=== PATIENT | female | born 1985 | race American Indian/Alaskan Native ===

== ENCOUNTER → 2018-12-15 | Emergency (ER) | payer OTHER ==
[~2018-12-15] MED LIST: TYLENOL PO ONE
[2018-12-15 11:13] VITALS: BP 124/73
--- NOTE | 2018-12-15 11:15 | Emergency Department Report ---
Chief Complaint: Vaginal Bleeding Stated Complaint: ABD PAIN Time Seen by Provider: 12/15/18 11:09 - HPI History of Present Illness: This is a 33 y.o. female that presents to ED with abdominal pain and vaginal bleeding x 1 week. Took a home test on Tuesday which was positive. Admits to nausea and vomiting twice, mild lower back pain. LMP 11/10/2018, A1. - ROS Review of Systems: Abdominal pain, vaginal bleeding, and low back pain - Exam Vital Signs: Vital Signs 12/15/18 11:10 Temperature 98.5 F Pulse Rate 66 Respiratory 20 Rate Blood Pressure 124/73 O2 Sat by Pulse 100 Oximetry MSE screening note: Focused history and physical exam performed. Due to findings the following was ordered: labs and US Fast track for further evaluation ED Disposition for MSE Condition: Stable
[2018-12-15 11:49] LABS: Basophils % (Auto) 0.2 % (0.0-1.8); Eosinophils # (Auto) 0.1 K/mm3 (0.0-0.4); Eosinophils % (Auto) 1.6 % (0.0-4.3); Hematocrit 39.3 % (30.3-42.9); Hemoglobin 13.1 gm/dl (10.1-14.3); Lymphocytes # (Auto) 2.6 K/mm3 (1.2-5.4); Lymphocytes % (Auto) 32.1 % (13.4-35.0); Mean Corpuscular HGB Conc 33 % (30-34); Mean Corpuscular Volume 82 fl (79-97); Monocytes # (Auto) 0.5 K/mm3 (0.0-0.8); Monocytes % (Auto) 6.3 % (0.0-7.3); Platelet Count 229 K/mm3 (140-440); Red Blood Count 4.82 M/mm3 (3.65-5.03); Red Cell Distribution Width 14.5 % (13.2-15.2)
--- NOTE | 2018-12-15 13:58 | Ultrasound Report ---
ULTRASOUND OB LESS THAN 14 WEEKS FETUS ULTRASOUND OB TRANSVAGINAL History: Vaginal bleeding. Findings: Transabdominal and transvaginal ultrasound imaging was performed. The uterus measures 9.8 x 6.1 x 7.4 cm. No uterine mass is appreciated. Normal cervix. A small intrauterine gestational sac is suspected near the uterine fundus. Average diameter measures 6 mm which correlates with a five-week two-day . No convincing pole, yolk sac or heart rate could be demonstrated at this time. The right ovary and measures 3.8 x 2.2 x 3.3 cm. The left ovary measures 5.1 x 2.2 x 3.5 cm. A 2.5 cm corpus luteum cyst is suspected in the left ovary. Impression: Probable early intrauterine as described above. No acute abnormality is detected.
--- NOTE | 2018-12-15 16:26 | Emergency Department Report ---
ED HPI - General Chief complaint: Vaginal Bleeding Stated complaint: ABD PAIN Time Seen by Provider: 12/15/18 11:09 Source: patient Mode of arrival: Ambulatory Limitations: No Limitations - History of Present Illness Initial comments: 33-year-old female presents to the hospital seventh complaining of vaginal spotting and cramping. Patient developed cramping and pain one week ago which she thought was her menstrual cycle. Her test was positive. 2 days ago she developed vaginal spotting which has continued. Pain is rated 8/10 in intensity, intermittent, worse with palpation, and radiates to the back. This is the patient's seventh Is positive into his history one miscarriage. Patient was seen at an urgent care prior to arrival and referred to the ED for evaluation. Patient denies dysuria. She has had intermittent nausea and vomiting 2 which she states feels like morning sickness. No nausea at this time. Patient states her blood type is A- and she has required RhoGAM shot in the past - Related Data Allergies Allergy/AdvReac Type Severity Reaction Status Date / Time Sulfa (Sulfonamide Allergy Hives Verified 12/15/18 10:57 Antibiotics) ED Review of Systems ROS: Stated complaint: ABD PAIN Other details as noted in HPI Comment: All other systems reviewed and negative ED Past Medical Hx - Past Medical History Previous Medical History?: No - Surgical History Past Surgical History?: No - Social History Smoking Status: Never Smoker Substance Use Type: None ED Physical Exam - General Limitations: No Limitations - Other Other exam information: General: No limitations, patient is alert in no acute distress Head exam: Atraumatic, normocephalic Eyes exam: Normal appearance ENT: Moist mucous membrane, normal oropharynx Neck exam: Normal inspection, full range of motion, no meningismus nontender Respiratory exam: Clear to auscultation bilateral, no wheezes, rales, crackles Cardiovascular: Normal rate and rhythm, normal heart sounds Abdomen: Soft, nondistended, mild suprapubic tenderness, with normal bowel sounds, no rebound, or guarding Extremity: Full range of motion normal inspection no deformity Back: Normal Inspection, full range of motion, no tenderness Neurologic: Alert, oriented x3, cranial nerves intact, no motor or sensory deficit Psychiatric: normal affect, normal mood Skin: Warm, dry, intact ED Course Vital Signs 12/15/18 12/15/18 11:10 16:11 Temperature 98.5 F Pulse Rate 66 Respiratory 20 18 Rate Blood Pressure 124/73 O2 Sat by Pulse 100 Oximetry ED Medical Decision Making - Lab Data Result diagrams: 12/15/18 11:23 Lab Results 12/15/18 12/15/18 12/15/18 Range/Units 11:23 11:23 11:23 WBC 8.3 (4.5-11.0) K/mm3 RBC 4.82 (3.65-5.03) M/mm3 Hgb 13.1 (10.1-14.3) gm/dl Hct 39.3 (30.3-42.9) % MCV 82 (79-97) fl MCH 27 L (28-32) pg MCHC 33 (30-34) % RDW 14.5 (13.2-15.2) % Plt Count 229 (140-440) K/mm3 Lymph % (Auto) 32.1 (13.4-35.0) % [place] % (Auto) 6.3 (0.0-7.3) % Eos % (Auto) 1.6 (0.0-4.3) % Baso % (Auto) 0.2 (0.0-1.8) % Lymph # 2.6 (1.2-5.4) K/mm3 [place] # 0.5 (0.0-0.8) K/mm3 Eos # 0.1 (0.0-0.4) K/mm3 Baso # 0.0 (0.0-0.1) K/mm3 Seg Neutrophils % 59.8 (40.0-70.0) % Seg Neutrophils # 4.9 (1.8-7.7) K/mm3 HCG, Quant 3636 H (0-4) mIU/mL Blood Type A NEGATIVE Antibody Screen Negative 12/15/18 Range/Units 13:00 WBC (4.5-11.0) K/mm3 RBC (3.65-5.03) M/mm3 Hgb (10.1-14.3) gm/dl Hct (30.3-42.9) % MCV (79-97) fl MCH (28-32) pg MCHC (30-34) % RDW (13.2-15.2) % Plt Count (140-440) K/mm3 Lymph % (Auto) (13.4-35.0) % [place] % (Auto) (0.0-7.3) % Eos % (Auto) (0.0-4.3) % Baso % (Auto) (0.0-1.8) % Lymph # (1.2-5.4) K/mm3 [place] # (0.0-0.8) K/mm3 Eos # (0.0-0.4) K/mm3 Baso # (0.0-0.1) K/mm3 Seg Neutrophils % (40.0-70.0) % Seg Neutrophils # (1.8-7.7) K/mm3 HCG, Quant (0-4) mIU/mL Blood Type A NEGATIVE Antibody Screen - Radiology Data Radiology results: report reviewed History: Vaginal bleeding. Findings: Transabdominal and transvaginal ultrasound imaging was performed. The uterus measures 9.8 x 6.1 x 7.4 cm. No uterine mass is appreciated. Normal cervix. A small intrauterine gestational sac is suspected near the uterine fundus. Average diameter measures 6 mm which correlates with a five-week two-day . No convincing pole, yolk sac or heart rate could be demonstrated at this time. The right ovary and measures 3.8 x 2.2 x 3.3 cm. The left ovary measures 5.1 x 2.2 x 3.5 cm. A 2.5 cm corpus luteum cyst is suspected in the left ovary. Impression: Probable early intrauterine as described above. No acute abnormality is detected. - Medical Decision Making Patient blood type is a negative ED RhoGAM ordered H&H vital signs normal Elevated beta-hCG with intrauterine gestational sac Patient counseled to return or have blood work repeated in 2 days by station master to demonstrate hCG level increased versus decreased Important to follow-up [employer] patient provided a copy of labs and ultrasound - Differential Diagnosis ectopic, miscarriage, threatened Critical Care Time: No Critical care attestation.: If time is entered above; I have spent that time in minutes in the direct care of this critically ill patient, excluding procedure time. ED Disposition Clinical Impression: Threatened miscarriage, Blood type A-, Need for rhogam due to Rh negative mother Disposition: DC-01 TO HOME OR SELFCARE Is pt being admited?: No Does the pt Need Aspirin: No Condition: Stable Instructions: Rho(D) Immune Globulin (Injection), Threatened Miscarriage (ED) Additional Instructions: Take Tylenol as needed for pain and vitamins. Follow up with your doctor or the clinic/doctor provided. Return if symptoms worsen as indicated by your discharge instructions. Return here or follow-up with your [employer] doctor in 2 days for repeat blood work to determine if your baby hormone level is increasing or decreasing. Referrals: your, station master [Other] - 2-3 Days CINTHIA NUNO MD [Staff Physician] - 2-3 Days Forms: Work/School Release Form(ED) Time of Disposition: 18:00
== END | disposition home or self-care (01) ==
LOC: ED 10:54
DX: O20.0 Threatened abortion (principal); Z3A.01 Less than 8 weeks gestation of pregnancy
CPT/HCPCS: 36415; 76801; 76817; 84702; 85025; 86850; 86900; 86901; 96372; 99284; J2790

== ENCOUNTER 2018-12-18 09:48 | Emergency (ER) | payer OTHER ==
[2018-12-18 10:03] VITALS: BP 125/65
[2018-12-18 12:48] LABS: Bilirubin,Urine NEG (Negative); Blood,Urine SM (Negative); Color,Urine Yellow (Yellow); Mucus,Urine FEW /HPF; Protein,Urine <15 mg/dL mg/dL (Negative); Urobilinogen,Urine < 2.0 mg/dL (<2.0)
--- NOTE | 2018-12-18 13:10 | Emergency Department Report ---
ED HPI - General Chief complaint: Abdominal Pain Stated complaint: HCG LEVELS Time Seen by Provider: 12/18/18 11:39 Source: patient Mode of arrival: Ambulatory Limitations: No Limitations - History of Present Illness Initial comments: Patient is a 33-year-old Female who was here 3 days ago for vaginal bleeding and . Patient's Quant was 3636. Patient had a gestational sac that measures roughly 5 weeks. Patient was told that she was having a possible miscarriage and return today for a repeat Quant. Patient states bleeding has st opped however she still does have some suprapubic discomfort as well as cramping in her lower back. Patient states she has mild nausea but no actual vomiting. - Related Data Allergies Allergy/AdvReac Type Severity Reaction Status Date / Time Sulfa (Sulfonamide Allergy Hives Verified 12/15/18 10:57 Antibiotics) ED Review of Systems ROS: Stated complaint: HCG LEVELS Other details as noted in HPI Comment: All other systems reviewed and negative ED Past Medical Hx - Social History Smoking Status: Never Smoker Substance Use Type: None ED Physical Exam - General Limitations: No Limitations General appearance: alert, in no apparent distress - Head Head exam: Present: atraumatic, normocephalic - Eye Eye exam: Present: normal appearance - ENT ENT exam: Present: mucous membranes moist - Neck Neck exam: Present: normal inspection - Respiratory Respiratory exam: Present: normal lung sounds bilaterally. Absent: respiratory distress, wheezes, rales - Cardiovascular Cardiovascular Exam: Present: regular rate, normal rhythm. Absent: systolic murmur, diastolic murmur, rubs, gallop - GI/Abdominal GI/Abdominal exam: Present: soft, normal bowel sounds. Absent: distended, tenderness, guarding, rebound, rigid - Extremities Exam Extremities exam: Present: normal inspection - Back Exam Back exam: Present: normal inspection - Neurological Exam Neurological exam: Present: alert, oriented X3 - Psychiatric Psychiatric exam: Present: normal affect, normal mood - Skin Skin exam: Present: warm, dry, intact, normal color. Absent: rash ED Course Vital Signs 12/18/18 10:02 Temperature 98.1 F Pulse Rate 67 Respiratory 18 Rate Blood Pressure 125/65 [Right] O2 Sat by Pulse 100 Oximetry ED Medical Decision Making - Lab Data Lab Results 12/18/18 12/18/18 Range/Units 11:51 Unknown HCG, Quant 6892 H (0-4) mIU/mL Urine Color Yellow (Yellow) Urine Turbidity Clear (Clear) Urine pH 5.0 (5.0-7.0) Ur Specific [place] 1.028 (1.003-1.030) Urine Protein <15 mg/dl (Negative) mg/dL Urine Glucose (UA) Neg (Negative) mg/dL Urine Ketones Neg (Negative) mg/dL Urine Blood Sm (Negative) Urine Nitrite Neg (Negative) Urine Bilirubin Neg (Negative) Urine Urobilinogen < 2.0 (<2.0) mg/dL Ur Leukocyte Esterase Neg (Negative) Urine WBC (Auto) 1.0 (0.0-6.0) /HPF Urine RBC (Auto) 7.0 (0.0-6.0) /HPF U Epithel Cells (Auto) 1.0 (0-13.0) /HPF Urine Mucus Few /HPF - Medical Decision Making Patient's beta Quant has increased and is in the range that would be expected for 3 day follow-up. Patient to follow up with MEDICAL SCHEDULER. Critical care attestation.: If time is entered above; I have spent that time in minutes in the direct care of this critically ill patient, excluding procedure time. ED Disposition Clinical Impression: Qualifiers: Weeks of gestation: unspecified Qualified Code(s): Z34.90 - Encounter for supe rvision of normal , unspecified, unspecified trimester Disposition: DC-01 TO HOME OR SELFCARE Is pt being admited?: No Does the pt Need Aspirin: No Condition: Stable Additional Instructions: Your beta Quant today is 6892. This is increased from 3636 3 days ago. This increase is in the desirable range. Time of Disposition: 13:10
== END 2018-12-18 13:21 | disposition home or self-care (01) ==
LOC: ED 09:48
DX: O26.891 Other specified pregnancy related conditions, first trimester (principal); Z3A.01 Less than 8 weeks gestation of pregnancy; Z88.2 Allergy status to sulfonamides
CPT/HCPCS: 36415; 81001; 84702; 99283